=== PATIENT | male | born 1955 | race Caucasian/White ===

== ENCOUNTER → 2018-04-07 07:47 | Outpatient (CLI) | payer OTHER | END | disposition home or self-care (01) | LOC: D.HCCARDIO 07:47 | DX: Z68.24 Body mass index [BMI] 24.0-24.9, adult (principal) ==

== ENCOUNTER → 2018-04-08 08:29 | Outpatient (CLI) | payer OTHER ==
[2018-04-08 16:27] LABS: CALC OSMOLALITY 280 mosm/kg (275-300); CARBON DIOXIDE 28.9 mmol/L (21.0-32.0); CHLORIDE - SERUM 105 mmol/L (98-107); GLUCOSE 88 mg/dL (74-106); POTASSIUM - SERUM 4.6 mmol/L (3.5-5.1); SODIUM 138 mmol/L (136-145); UREA NITROGEN 30 mg/dL (7-18); eGFR NON AFRICAN AMERICAN 80 mL/min (90-120)
== END | disposition home or self-care (01) ==
LOC: D.CT 08:29
PROVIDERS: Internal Medicine Nephrology
DX: I10 Essential (primary) hypertension (principal); R80.9 Proteinuria, unspecified

== ENCOUNTER → 2018-04-30 09:38 | Outpatient (CLI) | payer OTHER | END | disposition home or self-care (01) | LOC: D.NM 09:38 → D.CT 11:30 | DX: C64.9 Malignant neoplasm of unspecified kidney, except renal pelvis (principal) ==

== ENCOUNTER 2018-06-07 09:18 | Inpatient (IN) | payer OTHER ==
[~2018-06-07] VITALS: Ht 172.7 cm; Wt 68.0 kg
[2018-06-08] MEDS ORDERED: RANITIDINE HCL150 M1 PO (14:41)
[2018-06-08] MEDS ORDERED: ADVIL200 MG PO (14:42)
[2018-06-08] MEDS ORDERED: COZAAR50 MG PO (14:43)
[2018-06-08] MEDS ORDERED: BENTYL10 MG (14:44)
[2018-06-08] MEDS ORDERED: VALTREX1000 MG (14:45)
[2018-06-08] MEDS ORDERED: FUROSEMIDE40 MG PO (14:45)
[2018-06-08] MEDS ORDERED: MAGNESIUM OXID250 MG PO (14:46)
[2018-06-08] MEDS ORDERED: UROCIT-K10 MEQ (14:46)
[2018-06-08] MEDS ORDERED: CRANBERRY (14:47)
[2018-06-08] MEDS ORDERED: OS-CAL500 MG (14:49)
[2018-06-08 16:00] LABS: BASOPHILS 0.3 % (0-2); EOSINOPHILS 3.5 % (0-7); HEMATOCRIT 36.3 % (42.0-54.0); HEMOGLOBIN 11.9 g/dL (13.5-17.5); IMMATURE GRANULOCYTES 0.2 % (0-5); LYMPHOCYTES 25.5 % (15-50); MCH 29.8 pg (26.0-34.0); MCHC 32.8 g/dL (31.0-37.0); MCV 90.8 fL (80.0-100.0); MEAN PLATELET VOLUME 8.7 fL (7.4-10.4); MONOCYTES 7.4 % (2-11); NEUTROPHILS 63.1 % (40-80); PLATELET COUNT 201 10x3/uL (130-400); RDW 12.8 % (11.5-14.5); WBC 5.9 10x3/uL (4.8-10.8)
[2018-06-08 16:14] LABS: CARBON DIOXIDE 29.5 mmol/L (21.0-32.0); CREATININE - SERUM 1.1 mg/dL (0.6-1.3); POTASSIUM - SERUM 4.5 mmol/L (3.5-5.1)
[2018-06-11] VITALS (11 sets, daily range): BP systolic 113–140; BP diastolic 47–71; BMI 24.3; BMI 22.8
--- NOTE | 2018-06-11 08:29 | NUR ---
0827 LAB CALLED TO HAVE POTASSIUM DRAWN
--- NOTE | 2018-06-11 16:45 | NUR ---
RECEIVED TO ROOM 2202 VIA BED FROM PACU. A/O X3. CAREGIVER AT BEDSIDE. SKIN IS INTACT WITHOUT REDNESS EXCEPT INCISION TO MIDABDOMEN WHICH HAS A DRY INTACT DRESSING IN PLACE. PONCE PATENT WITH CLEAR YELLOW URINE. DENIES NEEDS.
--- NOTE | 2018-06-11 18:27 | NUR ---
PATIENT FELT HIS SUGAR WAS LOW. 72 AT THIS TIME. NO CHANGES NOTED. VSS.
[2018-06-12 04:00] VITALS: BP 115/55
[2018-06-12 05:43] LABS: BASOPHILS 0.1 % (0-2); EOSINOPHILS 0 % (0-7); HEMATOCRIT 33.7 % (42.0-54.0); HEMOGLOBIN 11.1 g/dL (13.5-17.5); IMMATURE GRANULOCYTES 0.1 % (0-5); LYMPHOCYTES 10.9 % (15-50); MCH 29.4 pg (26.0-34.0); MCHC 32.9 g/dL (31.0-37.0); MCV 89.4 fL (80.0-100.0); MEAN PLATELET VOLUME 9.4 fL (7.4-10.4); MONOCYTES 9.7 % (2-11); NEUTROPHILS 79.2 % (40-80); PLATELET COUNT 205 10x3/uL (130-400); RBC 3.77 10x6/uL (4.20-6.10); RDW 12.8 % (11.5-14.5); WBC 8.2 10x3/uL (4.8-10.8)
--- NOTE | 2018-06-12 06:00 | NUR ---
I have reviewed this patient and I concur with the Shift Assessment completed by the Licensed Practical Nurse today this shift.
[2018-06-12 06:29] LABS: ALBUMIN 1.4 g/dL (3.4-5.0); ALKALINE PHOSPHATASE 55 U/L (46-116); ALT (SGPT) 34 U/L (10-68); BILIRUBIN - TOTAL 0.42 mg/dL (0.2-1.3); CALC OSMOLALITY 281 mosm/kg (275-300); CALCIUM 7.5 mg/dL (8.5-10.1); CARBON DIOXIDE 24.2 mmol/L (21.0-32.0); CHLORIDE - SERUM 103 mmol/L (98-107); CREATININE - SERUM 1.8 mg/dL (0.6-1.3); GLUCOSE 124 mg/dL (74-106); MAGNESIUM - SERUM 2.2 mg/dL (1.8-2.4); PHOSPHOROUS 5.4 mg/dL (2.5-4.9); POTASSIUM - SERUM 4.9 mmol/L (3.5-5.1); PROTEIN - SERUM 4.5 g/dL (6.4-8.2); SODIUM 135 mmol/L (136-145); TROPONIN-I < 0.017 ng/mL (0.000-0.060); UREA NITROGEN 43 mg/dL (7-18); eGFR NON AFRICAN AMERICAN 41 mL/min (90-120)
--- NOTE | 2018-06-12 07:57 | NUR ---
PT ALERT X 4. BREATH SOUNDS CLEAR BILAT. DRESSING TO MIDLINE ABDOMEN AND LOWER LEFT QUADRANT, CLEAN DRY AND INTACT. IV TO RIGHT FOREARM, PATENT, DRESSING CLEAN DRY AND INTACT. RATING PAIN 2/10, WILL MONITOR, DATA PROCESSING AUDITOR IN PLACE. PONCE IN PLACE, URINE LIGHT YELLOW AND CLEAR. BED LOW, CALL LIGHT IN REACH. NO OTHER NEEDS AT THIS LIN
[2018-06-12 08:22] VITALS: BP 123/61
--- NOTE | 2018-06-12 09:32 | OP ---
PATIENT NAME: TOMASA AUGUSTINE MEDICAL RECORD: [id number] :55 LOCATION:D.MS [id number] ADMISSION DATE:06/11/18 SURGEON: BRUNO WATTS MD DATE OF OPERATION: 06/11/2018 CO-SURGEONS: Bruno Watts MD and Bruno Llanos MD ANESTHESIA: General anesthesia by Barry Christensen CRNA DIAGNOSES: 1. 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 2. Nephrotic syndrome. PROCEDURES: 1. Laparoscopic hand-assisted left radical nephrectomy. 2. Left renal biopsy. FINDINGS: Left posterior renal tumor. ESTIMATED BLOOD LOSS: Minimal. CLINICAL HISTORY: This is a 62-year-old male, who was referred by Dr. Porter, the socket welder helper for a left renal mass. The mass was 4 cm in diameter and it is solid. It enhances with IV contrast. It extends all the way from the cortex, all the way into the collecting system of the kidney. Due to its full depth of cortical penetration, we cannot do a wedge excision of this tumor. The patient has significant nephrotic syndrome with proteinuria. Dr. Porter has requested that when we remove the kidney for presumed renal cell carcinoma that we send a portion of the normal part of the kidney to [facility] in [place] to do testing for the nephrotic syndrome. I have made arrangements with Dr. Varner of pathology to have this done. Dr. Varner has requested that a fresh specimen be obtained from a normal appearing portion of the kidney and sent to him in saline moistened gauze. He will process it further from there. THE PATIENT IS ALLERGIC TO AMLODIPINE, DOXYCYCLINE, ERYTHROMYCIN, PENICILLIN, AND SULFA. He was given Levaquin IV agronomist to the OR. DESCRIPTION OF PROCEDURE: The patient was given induction of general anesthesia in supine position. We inserted a Walden catheter and put this to bag drainage. He was then turned into a lateral decubitus position, actually about 45 degrees off with the left side up. He was on a beanbag for support. All pressure points were padded. I marked out on his abdomen after it was prepped and draped, a 7.5 cm long incision starting from the level of the umbilicus and heading inferiorly along the midline of the abdomen. He is rather thin and long in his body physique. Near the left iliac crest, just a bit superior to it we located a 12-mm working port. A 12-mm working port would also be placed just under the xiphoid process and the abdominal midline for the camera. The 7.5 cm incision was made using a #15 blade. We went down to the midline of the rectus fascia. The rectus fascia was divided using the Bovie. We then tented on the peritoneum with hemostats. Metzenbaum scissors were used to enter into the peritoneal cavity. The peritoneal incision was made with the Metzenbaum scissors. We then placed our GelPort hand access port. With the Gelport in, we placed a 12-mm trocar and started insufflation of the abdomen for pneumoperitoneum with carbon dioxide. The pressure was limited for 15-mm of water. Once we had insufflation, the 12-mm ports were placed for the working element and the camera. We first incised the peritoneum lateral to the OPERATIVE REPORT [id number] TOMASA AUGUSTINE descending colon all the way from the splenic flexure, all the way to the iliac crest level. We then divided the splenocolic ligaments to allow the colon to move medially away from the anterior surface of the kidney. The attachments of the spleen to the retroperitoneum were also divided using a Harmonic scalpel. Following the renal splenic ligaments were divided to free the spleen from the superior surface of the kidney. The spleen was dissected so that we entered into the splenic hilum. The splenic artery and vein were visible. These were not injured in any way. Also, the pancreas was mobilized away from the anterior surface of the kidney, in this way the spleen and the pancreas could be mobilized somewhat medially to move them away from the anterior surface of the kidney. We dissected in the retroperitoneum posterior to the kidney and completely free the kidney from its retroperitoneal attachments. That was removed from lateral to medial. We gradually encountered the ureter. This was clipped multiple times and then divided between the clips. Continuing to move medially, we encountered the space for the vascular pedicle. An Endo-DEXTER 45 with vascular loads were used to go from inferiorly to cranially along the medial surface of the kidney and in this way the vascular pedicle was completely removed. We then turned the Endo-DEXTER around the cranial surface of the kidney and removed the adrenal gland and finally we removed all the attachments of the superior portion of the kidney through the retroperitoneum. The kidney specimen was entirely freed. Minimal bleeding had been encountered throughout. There was a small laceration on the splenic capsule, we filled this with a piece of Surgicel to promote hemostasis. The specimen was then removed from the patient. On a separate table, I exposed the renal parenchyma by dissecting away the perinephric fat from the lower pole of the kidney. This is away from the region of the tumor. At about a 5 to 6 mm depth, I amputated the lower pole of the kidney. This specimen was then sent to Dr. Varner in moistened gauze. I asked whether this would be an adequate specimen and Dr. Varner did reply that we had more than adequate material for their special testing. The remaining kidney was then sent to pathology in formalin. Surgicel Nu-Knit was applied over the renal pedicle, although there was no obvious bleeding. We then had the sponge and instrument counts, which were correct. The Leland-Koffi device was used to place a 0 Vicryl around our 12-mm trocar port sites. These were closed using the 0 Vicryl simple interrupted suture. The rectus fascia was reapproximated using looped 0 PDS in running fashion. [place] were used to close the skin incision. A 0.25% Marcaine without epinephrine was used for local anesthetic around the incision sites. Dressings were applied. The patient will be admitted to hospital. TRANSINT:[id number] Voice Confirmation ID: [id number] DOCUMENT ID: [id number] BRUNO WATTS MD at 0932 CC: [id number] DICTATION DATE: 06/11/18 1552 MANUFACTURING RECRUITER: 06/11/18 1710 ADM IN [place] [id number] [place] [address]
[2018-06-12 10:31] VITALS: Ht 172.7 cm; Wt 68.0 kg
[2018-06-12 13:59] VITALS: BP 121/56
[2018-06-12 16:26] LABS: CREATININE - URINE 89.7 mg/dL (30-125)
[2018-06-12 16:31] LABS: PROTEIN - URINE 434.2 mg/dL (0.0-11.9)
[2018-06-12 17:13] VITALS: BP 126/56
--- NOTE | 2018-06-12 19:30 | NUR ---
PT LYING IN BED RESTING, NO SIGNS OF DISTRESS. ALERT AND ORIENTED. STATES NO PAIN AT THIS TIME ONLY DISCOMFORT IN UPPER ABD. PT STATES HE FEELS BLOATED, PT ABD IS SLIGHTLY DISTENDED. TENDER TO TOUCH. IV LEFT FA INFUSING NS @ 75 W/ DILAUDID ULTRASOUND SPEC IN USE. PT UP AD JOSE F TO BATHROOM. PT HAS VOIDED AFTER PONCE DC'D. MIDLINE AND LEFT ABD DRESSING CDI. LE EDEMA NOTED. PT STATES NO OTHER NEEDS OR COMPLAINTS AT THIS TIME. CL IN REACH, WILL CONTINUE TO MONITOR
[2018-06-12 19:54] VITALS: BP 137/63
[2018-06-13] VITALS: BP 127/58
[2018-06-13 03:58] VITALS: BP 139/68
--- NOTE | 2018-06-13 04:15 | NUR ---
IV LEFT FA INFILTRATED. DC'D W/ CATHETER INTACT. RESITED IV RIGHT FA X2 ATTEMPTS. INFUSING NS @ 75 W/ DILAUDID FLAKE DRIER
[2018-06-13 06:32] LABS: BASOPHILS 0 % (0-2); EOSINOPHILS 1.3 % (0-7); HEMATOCRIT 35.3 % (42.0-54.0); HEMOGLOBIN 11.4 g/dL (13.5-17.5); IMMATURE GRANULOCYTES 0.1 % (0-5); LYMPHOCYTES 10.3 % (15-50); MCH 29.4 pg (26.0-34.0); MCHC 32.3 g/dL (31.0-37.0); MEAN PLATELET VOLUME 9.7 fL (7.4-10.4); MONOCYTES 9.1 % (2-11); NEUTROPHILS 79.2 % (40-80); PLATELET COUNT 214 10x3/uL (130-400); RBC 3.88 10x6/uL (4.20-6.10); RDW 13.2 % (11.5-14.5); WBC 7.9 10x3/uL (4.8-10.8)
[2018-06-13 07:17] LABS: ALBUMIN 1.4 g/dL (3.4-5.0); BILIRUBIN - TOTAL 0.34 mg/dL (0.2-1.3); CALCIUM 7.5 mg/dL (8.5-10.1); CARBON DIOXIDE 23.2 mmol/L (21.0-32.0); POTASSIUM - SERUM 4.2 mmol/L (3.5-5.1); PROTEIN - SERUM 4.8 g/dL (6.4-8.2)
[2018-06-13 08:42] VITALS: BP 150/73
--- NOTE | 2018-06-13 08:55 | NUR ---
PT ALERT X 4. BREATH SOUNDS CLEAR BILAT. IV TO RIGHT FOREARM, PATENT, DRESSING CLEAN DRY AND INTACT. DRESSING TO ABDOMEN INTACT, REDDNESS AROUND DRESSING TO LEFT SIDE OF ABDOMEN. PAIN OF 5/10, DIVISION OPERATIONS MANAGER IN PLACE. BED LOW, CALL LIGHT IN REACH. NO OTHER NEEDS AT THIS TIME.
[2018-06-13 13:07] VITALS: BP 158/83
--- NOTE | 2018-06-13 19:30 | NUR ---
PT LYING IN BED, NO SIGNS OF DISTRESS. ALERT AND ORIENTED. ABD DISTENDED, TENDER. BOWEL SOUNDS HYPOACTIVE IN UPPER QUADS. MIDLINE AND LLQ INCISION W/ HALINA OPEN TO AIR. REDDENED AREA W/ SOME BLISTERS AROUND SITES WHERE TAPE OF DRESSING HAD BEEN. IV RIGHT FA INFUSING NS @ 50 W/ DILAUDID POWER PLANT ASSISTANT. PT STATES HE HAS NOT HAD MUCH PAIN TODAY. DENIES NEEDS. CL IN REACH, WILL CONTINUE TO MONITOR
[2018-06-13 21:04] VITALS: BP 142/76
[2018-06-14 04:33] LABS: BASOPHILS 0.1 % (0-2); EOSINOPHILS 2.8 % (0-7); HEMATOCRIT 34.1 % (42.0-54.0); HEMOGLOBIN 11.2 g/dL (13.5-17.5); IMMATURE GRANULOCYTES 0.1 % (0-5); LYMPHOCYTES 17.4 % (15-50); MCH 29.6 pg (26.0-34.0); MCHC 32.8 g/dL (31.0-37.0); MEAN PLATELET VOLUME 9.1 fL (7.4-10.4); MONOCYTES 7.6 % (2-11); PLATELET COUNT 204 10x3/uL (130-400); RBC 3.79 10x6/uL (4.20-6.10); RDW 12.9 % (11.5-14.5); WBC 7.8 10x3/uL (4.8-10.8)
[2018-06-14 04:36] VITALS: BP 131/63
[2018-06-14 04:54] LABS: ALBUMIN 1.3 g/dL (3.4-5.0); ANION GAP 14.3 mmol/L (8-16); BILIRUBIN - TOTAL 0.35 mg/dL (0.2-1.3); CALCIUM 7.9 mg/dL (8.5-10.1); CARBON DIOXIDE 22.9 mmol/L (21.0-32.0); CREATININE - SERUM 2.2 mg/dL (0.6-1.3); POTASSIUM - SERUM 4.2 mmol/L (3.5-5.1); PROTEIN - SERUM 4.8 g/dL (6.4-8.2)
--- NOTE | 2018-06-14 07:15 | NUR ---
MORNING ASSESSMENT COMPLETE. SEE ASSEMENT FLOWSHEET FOR FURTHER DETAILS. PT LYING IN BED AAO X4 TO PERSON, PLACE, TIME, AND SITUATION. BOWEL SOUNDS ACTIVE X4. DENIES NEEDS AT THIS TIME. CL IN REACH
[2018-06-14 07:58] VITALS: BP 142/72
[2018-06-14 12:22] VITALS: BP 130/74
--- NOTE | 2018-06-14 12:27 | MORECARE ---
CASE MANAGEMENT DISCHARGE SUMMARY PATIENT: TOMASA AUGUSTINE UNIT: [id number] ADM DATE: 06/11/18 AGE: 62 : 55 SEX: M ROOM/BED: D.2202 AUTHOR: LOYDADOC PHYSICIAN: REFERRING PHYSICIAN: BRUNO WATTS MD DATE OF SERVICE: 06/14/18 Discharge Plan Patient Name: TOMASA AUGUSTINE [facility] [facility] 1955 Planned Disposition: Home or Self Care Anticipated Discharge Date: Discharge Date: Expected LOS: Initial Reviewer: [email or web address] Initial Review Date: 06/11/2018 Generated: 06/14/18 1:26 pm Comments DCP- Discharge Planning Updated by [email or web address]: Mary Warren on 06/14/18 11:[address] Patient Name: TOMASA AUGUSTINE Admission Status: Elective Accout number: [id number] Admission Date: 06-11-2018 : 1955 Admission Diagnosis: Attending: PATRICE WATTS Current LOS: 3 Anticipated DC Date: Planned Disposition: Home or Self Care Primary Insurance: [facility] Discharge Planning Comments: CM met with patient to complete initial dc planning assessment. CM educated patient on the CM role and verbal consent given by patient to complete assessment. Patient lives at home where he independent with his care. At discharge patient plans to return home and feels this is a safe discharge. Samir Larios will be his bus van driver home. CM discussed availability of home health, rehab services, and medical equipment. Patient denied known discharge needs at this time. CM will continue to follow and will assist as needed with dc plans/needs. Nailhead Puncher: Mary Warren DCPIA - Discharge Planning Initial Assessment Updated by [email or web address]: Mary Warren on 06/14/18 12:21 pm * Is the patient Alert and Oriented? Yes * How many steps to enter\exit or inside your home? handicap * PCP Lachelle Dooley apn * Pharmacy [facility] [address] * Preadmission Environment Home Alone * ADLs Independent * Equipment None * List name and contact numbers for known caregivers / representatives who currently or will assist patient after discharge: Sara Ric [phone] * Verbal permission to speak to the caregivers and representatives has been obtained from the patient. N/A * Community resources currently utilized None * Additional services required to return to the preadmission environment? No * Can the patient safely return to the preadmission environment? Yes * Has this patient been hospitalized within the prior 30 days at any hospital? No Patient Name: TOMASA AUGUSTINE Page [phone] at 1227 All edits/amendments must be made on the electronic document DICTATION DATE: 06/14/186 OTOLOGIST: NEFTALI 06/14/186 RPT#: [id number] DC DATE: STATUS: ADM IN [facility] [address] [place] [address] END OF REPORT
[2018-06-14 16:00] VITALS: BP 153/73
[2018-06-14 22:13] VITALS: BP 129/57
--- NOTE | 2018-06-15 | NUR ---
PT SUPINE IN BED ASKING WHY HE DID NOT GET DISCHARGED. READ PT THE NOTE WHERE STATED THAT HE WOULD BE DISCHARGED IF HE TOLERATED REGULAR DIET ON THE AND THE . PT DENIES FURTHER NEEDS AT THIS TIME.
[2018-06-15 04:54] LABS: BASOPHILS 0.1 % (0-2); EOSINOPHILS 4.6 % (0-7); HEMATOCRIT 32.9 % (42.0-54.0); HEMOGLOBIN 10.8 g/dL (13.5-17.5); IMMATURE GRANULOCYTES 0.1 % (0-5); LYMPHOCYTES 16.9 % (15-50); MCH 29.5 pg (26.0-34.0); MCHC 32.8 g/dL (31.0-37.0); MCV 89.9 fL (80.0-100.0); MEAN PLATELET VOLUME 9.5 fL (7.4-10.4); MONOCYTES 8.2 % (2-11); NEUTROPHILS 70.1 % (40-80); PLATELET COUNT 204 10x3/uL (130-400); RBC 3.66 10x6/uL (4.20-6.10); RDW 12.9 % (11.5-14.5); WBC 7.6 10x3/uL (4.8-10.8)
[2018-06-15 05:09] LABS: ALBUMIN 1.2 g/dL (3.4-5.0); ANION GAP 10.3 mmol/L (8-16); BILIRUBIN - TOTAL 0.22 mg/dL (0.2-1.3); CALCIUM 7.6 mg/dL (8.5-10.1); CARBON DIOXIDE 24.6 mmol/L (21.0-32.0); CREATININE - SERUM 2.2 mg/dL (0.6-1.3); POTASSIUM - SERUM 3.9 mmol/L (3.5-5.1); PROTEIN - SERUM 4.5 g/dL (6.4-8.2)
[2018-06-15 05:18] VITALS: BP 147/78
--- NOTE | 2018-06-15 08:02 | NUR ---
I have reviewed this patient and I concur with the Shift Assessment completed by the Licensed Practical Nurse today this shift.
[2018-06-15] MEDS ORDERED: HYDROCODON-ACE1 EAC7 PO (08:49)
--- NOTE | 2018-06-15 08:53 | MORECARE ---
CASE MANAGEMENT DISCHARGE SUMMARY PATIENT: TOMASA AUGUSTINE UNIT: [id number] ADM DATE: 06/11/18 AGE: 62 : 55 SEX: M ROOM/BED: D.2202 AUTHOR: EMELIA SCALES PHYSICIAN: REFERRING PHYSICIAN: BRUNO WATTS MD DATE OF SERVICE: 06/15/18 Discharge Plan Patient Name: TOMASA AUGUSTINE Facility: [facility]:[place] : 1955 Planned Disposition: Home or Self Care Anticipated Discharge Date: Discharge Date: Expected LOS: Initial Reviewer: [email or web address] Initial Review Date: 06/11/2018 Generated: 06/15/18 9:53 am Comments DCP- Discharge Planning Updated by [email or web address]: Mary Warren on 06/15/18 7:[address] Patient Name: TOMASA AUGUSTINE Encounter No: [id number] : 1955 Primary Insurance: [facility] riskmethods [facility] Anticipated DC Date: Planned Disposition: Home or Self Care External Planned Provider: : DCP follow-up note: Patient and family in agreement with discharge plan. No changes to plan. Case management will follow and assist as needed. Mary Warren DCP- Discharge Planning Updated by [email or web address]: Mary Warren on 06/14/18 11:[address] Patient Name: TOMASA AUGUSTINE Admission Status: Elective Accout number: [id number] Admission Date: 06-11-2018 : 1955 Admission Diagnosis: Attending: PATRICE WATTS Current LOS: 3 Anticipated DC Date: Planned Disposition: Home or Self Care Primary Insurance: [facility] riskmethods [facility] Discharge Planning Comments: CM met with patient to complete initial dc planning assessment. CM educated patient on the CM role and verbal consent given by patient to complete assessment. Patient lives at home where he independent with his care. At discharge patient plans to return home and feels this is a safe discharge. Samir Larios will be his parts driver home. CM discussed availability of home health, rehab services, and medical equipment. Patient denied known discharge needs at this time. CM will continue to follow and will assist as needed with dc plans/needs. Lamp Cleaner: Mary Warren DCPIA - Discharge Planning Initial Assessment Updated by [email or web address]: Mary Warren on 06/14/18 12:21 pm * Is the patient Alert and Oriented? Yes * How many steps to enter\exit or inside your home? handicap * PCP Lachelle Dooley apn * Pharm[facility] [address] * Preadmission Environment Home Alone * ADLs Independent * Equipment None * List name and contact numbers for known caregivers / representatives who currently or will assist patient after discharge: Sara Larios [phone] * Verbal permission to speak to the caregivers and representatives has been obtained from the patient. N/A * Community resources currently utilized None * Additional services required to return to the preadmission environment? No * Can the patient safely return to the preadmission environment? Yes * Has this patient been hospitalized within the prior 30 days at any hospital? No Last DP export: 06/14/18 11:27 am Patient Name: TOMASA AUGUSTINE Page 61981 at 0853 All edits/amendments must be made on the electronic document DICTATION DATE: 06/15/18852 PROJECT MANAGEMENT INSTRUCTOR: NEFTALI 06/15/18852 RPT#: [id number] DC DATE: STATUS: ADM IN [facility] [address] [place] [address] END OF REPORT
[2018-06-15 09:17] VITALS: BP 136/78
--- NOTE | 2018-06-15 10:33 | NUR ---
MORNING ASSESSMENT COMPLETE. SEE ASSESSMENT FLOWSHEET FOR FURTHER DETAILS. PT LYING IN BED AAO X4 TO PERSON, PLACE, TIME, AND SITUATION. WILL BE DISCHARGING TODAY. DENIES NEEDS AT THIS TIME.
--- NOTE | 2018-06-15 11:25 | MORECARE ---
CASE MANAGEMENT DISCHARGE SUMMARY PATIENT: TOMASA UAGUSTINE UNIT: [id number] ADM DATE: 06/11/18 AGE: 62 : 55 SEX: M ROOM/BED: D.2202 AUTHOR: EMELIA SCALES PHYSICIAN: REFERRING PHYSICIAN: BRUNO WATTS MD DATE OF SERVICE: 06/15/18 Discharge Plan Patient Name: TOMASA AUGUSTINE Facility: [facility]:[place] : 1955 Planned Disposition: Home or Self Care Anticipated Discharge Date: Discharge Date: 06/15/2018 Expected LOS: 0 Initial Reviewer: [email or web address] Initial Review Date: 06/11/2018 Generated: 06/15/18 12:24 pm Comments DCP- Discharge Planning Updated by [email or web address]: Mary Warren on 06/15/18 7:[address] Patient Name: TOMASA AUGUSTINE Encounter No: [id number] : 1955 Primary Insurance: [facility] Anticipated DC Date: Planned Disposition: Home or Self Care External Planned Provider: : DCP follow-up note: Patient and family in agreement with discharge plan. No changes to plan. Case management will follow and assist as needed. Mary Warren DCP- Discharge Planning Updated by [email or web address]: Mary Warren on 06/14/18 11:[address] Patient Name: TOMASA AUGUSTINE Admission Status: Elective Accout number: [id number] Admission Date: 06-11-2018 : 1955 Admission Diagnosis: Attending: PATRICE WATTS Current LOS: 3 Anticipated DC Date: Planned Disposition: Home or Self Care Primary Insurance: [facility] [employer] [facility] Discharge Planning Comments: CM met with patient to complete initial dc planning assessment. CM educated patient on the CM role and verbal consent given by patient to complete assessment. Patient lives at home where he independent with his care. At discharge patient plans to return home and feels this is a safe discharge. Samir Larios will be his special needs bus driver home. CM discussed availability of home health, rehab services, and medical equipment. Patient denied known discharge needs at this time. CM will continue to follow and will assist as needed with dc plans/needs. Tuber Operator: Mary Warren DCPIA - Discharge Planning Initial Assessment Updated by [email or web address]: Mary Warren on 06/14/18 12:21 pm * Is the patient Alert and Oriented? Yes * How many steps to enter\exit or inside your home? handicap * PCP Lachelle Dooley apn * Pharmacy [facility] [address] * Preadmission Environment Home Alone * ADLs Independent * Equipment None * List name and contact numbers for known caregivers / representatives who currently or will assist patient after discharge: Sara Larios [phone] * Verbal permission to speak to the caregivers and representatives has been obtained from the patient. N/A * Community resources currently utilized None * Additional services required to return to the preadmission environment? No * Can the patient safely return to the preadmission environment? Yes * Has this patient been hospitalized within the prior 30 days at any hospital? No Last DP export: 06/15/18 7:53 am Patient Name: TOMASA AUGUSTINE Page [phone] at 1125 All edits/amendments must be made on the electronic document DICTATION DATE: 06/15/18 112 RESERVE OFFICER: NEFTALI 06/15/18 112 RPT#: [id number] DC DATE:06/15/18 STATUS: DIS IN [facility] [address] [place] [address] END OF REPORT
== END 2018-06-15 10:34 | disposition home or self-care (01) | DRG 656 ==
LOC: D.MS 06-11 07:07 → D.SDCHOLD 06-11 07:07 → D.MS 06-11 16:05
PROVIDERS: Anesthesiology; Internal Medicine Nephrology; Surgery; ADMIT Urology; ATTEND Urology
PROC: 0TT10ZZ Resection of Left Kidney, Open Approach (ICD-10-PCS; principal; 2018-06-11 10:00)
PROC: 0TB00ZX Excision of Right Kidney, Open Approach, Diagnostic (ICD-10-PCS; 2018-06-11 10:00)
DX: D49.512 Neoplasm of unspecified behavior of left kidney (principal); N00-N99 Diseases of the genitourinary system; N04.8 Nephrotic syndrome with other morphologic changes; N17.9 Acute kidney failure, unspecified; K56.7 Ileus, unspecified